=== PATIENT | male | born 1965 | race Caucasian/White ===

== ENCOUNTER 2022-10-12 05:50 | Inpatient (IN) | payer OTHER ==
[~2022-10-12] VITALS: Ht 172.7 cm; Wt 117.7 kg
[2022-10-12] VITALS (7 sets, daily range): BP systolic 125–162; BP diastolic 66–106
[2022-10-12] MEDS ORDERED: ASPIRIN 325MG TABLET PO ONE (06:30)
[2022-10-12 06:59] LABS: BASOPHILS % 0.5 % (0.0-2.0); CHLORIDE 99 mEq/L (98-107); EOSINOPHILS % 0.9 % (0.0-5.0); HEMATOCRIT. 41.7 % (42.0-52.0); HEMOGLOBIN. 13.5 g/dL (14.0-18.0); LYMPHOCYTES % 11.2 % (20.0-50.0); MEAN CORPUSCULAR HEMOGLOBIN 27.8 pg (28.0-32.0); MEAN CORPUSCULAR VOLUME 85.8 fL (80.0-94.0); MEAN PLATELET VOLUME 9.7 fl (7.4-10.4); MONOCYTES % 4.1 % (2.0-8.0); NEUTROPHILS % 83.3 % (40.0-76.0); PLATELET 355 x1000/uL (130-400); RED BLOOD CELL COUNT 4.86 mill/uL (4.7-6.1); RED CELL DISTRIBUTION WIDTH 14.9 % (11.6-14.6)
[2022-10-12 07:06] LABS: PARTIAL THROMBOPLASTIN TIME 27.5 sec (23.4-31.0); PROTHROMBIN TIME 10.6 sec (9.6-11.0)
[2022-10-12] MEDS: HEPARIN 5000 UNITS/ML VIAL IV ONE ×2 (09:16→09:18)
[2022-10-12] MEDS: METOPROLOL TARTRATE 25MG TABLET PO SCH ×2 (10:26→21:07)
[2022-10-12] MEDS ORDERED: POTASSIUM CHLORIDE 20MEQ/PACKET PO NR (10:30)
[2022-10-12] MEDS ORDERED: HEPARIN 5000 UNITS/ML VIAL IV PRN ×2 (10:45)
[2022-10-12] MEDS ORDERED: HEPARIN 5000 UNITS/ML VIAL IV SCH (10:45)
[2022-10-12] MEDS ORDERED: HEPARIN 25,000 UNITS PREMIX 250 ML IV PRN (10:45)
[2022-10-12 11:43] LABS: PROTHROMBIN TIME 10.8 sec (9.6-11.0)
[2022-10-12] MEDS ORDERED: HEPARIN BOLUS PRN aPTT <30 IV (11:45)
[2022-10-12] MEDS ORDERED: MORPHINE SULFATE 2 MG/ML CPJ (NOT FOR IM USE) IV PRN (13:00)
[2022-10-12] MEDS ORDERED: DIPHENHYDRAMINE 50MG/ML VIAL IV PRN (13:00)
[2022-10-12] MEDS ORDERED: ONDANSETRON HCL 4MG/2ML INJ IV PRN (13:00)
[2022-10-12] MEDS ORDERED: NALOXONE HCL 0.4MG/ML VIAL IV PRN (13:00)
[2022-10-12] MEDS ORDERED: IPRATROPIUM/ALBUTEROL 0.5-3(2.5)MG/3ML NEB HHN PRN (13:00)
[2022-10-12] MEDS ORDERED: ACETAMINOPHEN 325MG TABLET PO PRN (13:00)
[2022-10-12] MEDS: HEPARIN 25,000 UNITS PREMIX 250 ML IV SCH (13:41)
[2022-10-12] MEDS ORDERED: LORAZEPAM 2MG/ML CPJ IV PRN (14:30)
[2022-10-12] MEDS: HEPARIN BOLUS PRN aPTT 30-44 IV (20:53)
[2022-10-12] MEDS: ATORVASTATIN CALCIUM 40MG TABLET PO SCH (21:07)
[2022-10-12] MEDS: BLOOD SUGAR DIAGNOSTIC STRIP TEST SCH (21:09)
[2022-10-12] MEDS: INSULIN LISPRO 100 UNITS/ML SUBCUT SCH (22:00)
[2022-10-12] MEDS ORDERED: DEXTROSE 50% WATER 50ML SYRINGE IV PRN (22:00)
[2022-10-12] MEDS ORDERED: FUROSEMIDE 40MG/4ML VIAL IVP NR (23:00)
[2022-10-13] VITALS (9 sets, daily range): BP systolic 119–178; BP diastolic 68–116
[2022-10-13 02:50] LABS: BASOPHILS % 0.6 % (0.0-2.0); HEMATOCRIT. 40.8 % (42.0-52.0); HEMOGLOBIN. 13.1 g/dL (14.0-18.0); MEAN CORPUSCULAR HEMOGLOBIN 27.1 pg (28.0-32.0); MEAN PLATELET VOLUME 9.4 fl (7.4-10.4); MONOCYTES % 8.8 % (2.0-8.0); NEUTROPHILS % 77.6 % (40.0-76.0); PLATELET 346 x1000/uL (130-400); RED BLOOD CELL COUNT 4.85 mill/uL (4.7-6.1); RED CELL DISTRIBUTION WIDTH 14.6 % (11.6-14.6)
[2022-10-13 02:58] LABS: CHLORIDE 101 mEq/L (98-107)
[2022-10-13] MEDS: HEPARIN BOLUS PRN aPTT 30-44 IV ×2 (04:36→12:00)
[2022-10-13] MEDS ORDERED: POTASSIUM CHLORIDE 20MEQ TABLET SR PO NR ×2 (05:15→19:30)
[2022-10-13] MEDS ORDERED: FUROSEMIDE 40MG/4ML VIAL IVP NR (06:00)
[2022-10-13] MEDS: BLOOD SUGAR DIAGNOSTIC STRIP TEST SCH ×4 (06:05→20:53)
[2022-10-13] MEDS: INSULIN LISPRO 100 UNITS/ML SUBCUT SCH ×4 (07:20→20:56)
[2022-10-13] MEDS ORDERED: SPIRONOLACTONE 50MG TABLET PO SCH (09:00)
[2022-10-13] MEDS ORDERED: IOHEXOL-350 100 ML BOTTLE ONE (09:14)
[2022-10-13] MEDS: FUROSEMIDE 40MG/4ML VIAL IVP SCH ×2 (10:00→17:52)
[2022-10-13] MEDS: METOPROLOL TARTRATE 25MG TABLET PO SCH ×2 (10:05→20:50)
[2022-10-13] MEDS: HEPARIN 25,000 UNITS PREMIX 250 ML IV SCH (11:37)
[2022-10-13] MEDS ORDERED: POTASSIUM CHLORIDE INJ 40 MEQ in DEXT 5% WATER 250 ML IV ONE (19:30)
[2022-10-13] MEDS: ATORVASTATIN CALCIUM 40MG TABLET PO SCH (20:50)
[2022-10-13] MEDS: KCL 20MEQ/100ML X 2 FOR TOTAL KCL 40MEQ/200ML IV SCH (22:57)
[2022-10-14] MEDS ORDERED: KCL 20MEQ/100ML X 2 FOR TOTAL KCL 40MEQ/200ML IV SCH (01:35)
[2022-10-14] MEDS: KCL 20MEQ/100ML X 2 FOR TOTAL KCL 40MEQ/200ML IV SCH (01:40)
[2022-10-14 01:47] VITALS: BP 164/103
[2022-10-14 02:12] VITALS: BP 164/103
[2022-10-14 02:42] VITALS: BP 179/105
[2022-10-14] MEDS ORDERED: HYDRALAZINE 20MG/ML VIAL IV NR (03:00)
[2022-10-14] MEDS: HEPARIN 25,000 UNITS PREMIX 250 ML IV SCH (03:47)
[2022-10-14 04:33] VITALS: BP 163/96
== END 2022-10-14 05:28 | disposition short-term general hospital (02) | DRG 190 ==
LOC: ER 05:50 → EDBEDREQTM 08:24 → 3WST 10:53 → EDBEDREQ 10:55 → EDBEDREQTM 10:55 → ENRESERV 16:28 → 3WST 18:03
PROVIDERS: ADMIT Internal Medicine; ATTEND Internal Medicine
DX: I21.4 Non-ST elevation (NSTEMI) myocardial infarction (principal); J96.01 Acute respiratory failure with hypoxia; I50.21 Acute systolic (congestive) heart failure; E44.1 Mild protein-calorie malnutrition; I11.0 Hypertensive heart disease with heart failure; E11.9 Type 2 diabetes mellitus without complications; E78.00 Pure hypercholesterolemia, unspecified; Z20.822 Contact with and (suspected) exposure to COVID-19; E78.5 Hyperlipidemia, unspecified; I25.10 Atherosclerotic heart disease of native coronary artery without angina pectoris; Z79.82 Long term (current) use of aspirin; Z88.1 Allergy status to other antibiotic agents; Z95.5 Presence of coronary angioplasty implant and graft
CPT/HCPCS: 36415; 70496; 70498; 70553; 71045; 80053; 82962; 83880; 84132; 84484; 85025; 87426; 93005; 93306; 93970; 94640; 99291; J0360; J1644; J1815; J1940; J2060; J3480; Q9967